=== PATIENT | male | born 1955 | race Caucasian/White ===

== ENCOUNTER → 2019-01-26 | Outpatient (CLI) | payer OTHER ==
--- NOTE | 2019-01-26 13:27 | KCIC ---
CT LOW DOSE LUNG SCREENING INDICATION: Lung cancer screening. Baseline lung screening. Asymptomatic patient. DEMOGRAPHICS: 63-year-old male. 30 pack-year smoking history. COMPARISON STUDY: Diagnostic CT chest 10/12/2015. TECHNIQUE: Unenhanced axial images were obtained through the lungs and upper abdomen using low dose technique. Coronal and sagittal multiplanar reformatted images were also obtained. PQRS compliance statement: One or more of the following individualized dose reduction techniques were utilized for this examination: 1. Automated exposure control 2. Adjustment of the mA and/or kV according to patient size 3. Use of iterative reconstruction technique FINDINGS: Lung Nodules: Stable left upper lobe solid pulmonary nodule measuring 7 x 4 mm (5.5 mm avg) (Series 6 image 184). Lungs and Airways: No pulmonary mass or consolidation. Normal central airways. Pleura: Normal pleural spaces. Heart and Mediastinum: The visualized portions of the thyroid gland are normal in size and attenuation. No axillary or supraclavicular lymphadenopathy. No mediastinal, hilar or retrocrural lymphadenopathy. Calcified right hilar lymph nodes consistent with remote granulomatous disease. Normal cardiac size. Lipomatous hypertrophy of the interatrial septum. No pericardial effusion. Coronary artery atherosclerotic disease. Left atrial appendage ligation. Atherosclerosis of the thoracic aorta. Abdomen: Calcified splenic granulomas. Atherosclerosis of the abdominal aorta. Bones and Soft Tissues: Multilevel degenerative changes of the spine. Median sternotomy. IMPRESSION: Stable small left upper lobe nodule measuring 5.5 mm. Lung-RADS Category: 2 Management Recommendation: Follow up low-dose chest CT in one year. Electronically signed by: Jagdish Jones MD (01/26/2019 1:24 PM) [facility]
== END | disposition home or self-care (01) ==
LOC: KCIC CT 09:55
PROVIDERS: ATTEND Family Medicine
DX: Z12.2 Encounter for screening for malignant neoplasm of respiratory organs (principal); R91.8 Other nonspecific abnormal finding of lung field; I70.0 Atherosclerosis of aorta; I11.9 Hypertensive heart disease without heart failure; D73.89 Other diseases of spleen; E11.9 Type 2 diabetes mellitus without complications; F17.210 Nicotine dependence, cigarettes, uncomplicated; Z79.01 Long term (current) use of anticoagulants; Z95.1 Presence of aortocoronary bypass graft
CPT/HCPCS: G0297

== ENCOUNTER → 2020-02-24 | Outpatient (CLI) | payer OTHER ==
--- NOTE | 2020-02-24 16:56 | KCIC ---
EXAM: CT Lung Cancer Screening Chest without IV contrast INDICATION: Lung cancer screening. 1.5 packs a day greater than 30 year pack history. TECHNIQUE: Multi-detector row low dose CT images were acquired from the thoracic inlet through the upper abdomen without the use of IV contrast. Scanning parameters were adjusted for evaluation of lung parenchyma for developing lung carcinoma with limited patient exposure. Sagittal and coronal images were acquired from the transaxial data. All CT scans performed at this facility utilize dose optimization techniques as appropriate to the exam, including the following: Automated exposure control and adjustment of the mA and/or KV according to patient size (this includes techniques or standardized protocols for targeted exams where dose is indication/reason for exam). COMPARISON: CT low-dose lung cancer screening study of 01/26/2019 FINDINGS: The absence of IV contrast limits evaluation of soft tissue pathology. 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 MEDIASTINUM & GIOVANA: No adenopathy or masses. LUNGS: No change in a 7 x 4 mm pulmonary nodule in the peripheral left upper lobe (image 193 series 6). No new pulmonary nodules. PLEURAL SPACE: No pleural effusions. No pneumothorax. OSSEOUS & SOFT TISSUES: Healed sternotomy incision. ABDOMEN: The visualized portions of the upper abdomen are normal. Lung-RADS ASSESSMENT: LUNG-RADS CATEGORY 2: Benign Appearance or Behavior/Nodules with a very low likelihood of becoming a clinically active cancer due to size or lack of growth. -- Continue annual screening with LDCT in 12 months. E2: Soft tissue structures and skeletal structures other than the lungs contain benign findings that do not require additional follow up IMPRESSION: Stable benign 7 x 4 mm lingular pulmonary nodule. Recommend screening in one year. Electronically signed by: Padmini So MD (02/24/2020 4:53 PM) [id number]
== END ==
LOC: KCIC CT 12:56
PROVIDERS: ATTEND Family Medicine
DX: Z12.2 Encounter for screening for malignant neoplasm of respiratory organs (principal); R91.1 Solitary pulmonary nodule; F17.210 Nicotine dependence, cigarettes, uncomplicated
CPT/HCPCS: G0297